=== PATIENT | female | born 1940 | race Caucasian/White ===

== ENCOUNTER 2016-08-18 13:53 | Inpatient (IN) | payer MEDICARE ==
[~2016-08-18] VITALS: Ht 154.9 cm; Wt 101.2 kg
[~2016-08-18 13:53] MED LIST: AMLO5TAB2 PO; CITA40TA5 PO; CLOB50FO8 TP; HYDR25TA6 PO; IBUP-1 PO; OMEP-110 PO; POTA10TA11 PO
[2016-08-18] MEDS ORDERED: SODIUM CHLORIDE 0.9% 1,000 ML IV ONE (14:05)
[2016-08-18] MEDS ORDERED: ONDANSETRON 2MG/ML, 2ML IVPush ONE (14:30)
[2016-08-18] MEDS ORDERED: SODIUM CHLORIDE FLUSH 10ML SYR IVF ONE (14:30)
[2016-08-18] MEDS ORDERED: HYDROmorphone 1 MG/ML, 1ML ONE (14:37)
[2016-08-18] MEDS ORDERED: ONDANSETRON 2MG/ML, 2ML ONE (14:37)
[2016-08-18] MEDS: HYDROmorphone 1 MG/ML, 1ML IVPush PRN ×2 (14:46→15:15)
[2016-08-18] MEDS ORDERED: ACETAMINOPHEN 325 MG TABLET PO ONE (15:00)
[2016-08-18] MEDS ORDERED: ACETAMINOPHEN 325 MG TABLET ONE (15:40)
[2016-08-18 15:44] LABS: ASPARTATE AMINO TRANSFERASE 15 U/L (15-37); BLOOD UREA NITROGEN 10 mg/dL (7-18)
[2016-08-18 15:50] LABS: IS PT STATUS REG ER OR PRE ER? YES
[2016-08-18 17:14] LABS: ICTOTEST POSITIVE
[2016-08-18] MEDS ORDERED: MORPHINE SULFATE 4 MG/ML, 1ML IVPush PRN (19:00)
[2016-08-18] MEDS ORDERED: ONDANSETRON 2MG/ML, 2ML IVP PRN (19:00)
[2016-08-18] MEDS ORDERED: POLYETHYLENE GLYCOL 17 GM PACKET PO PRN (19:00)
[2016-08-18] MEDS ORDERED: TEMAZEPAM 15 MG CAPSULE PO PRN (19:00)
[2016-08-18] MEDS ORDERED: BISACODYL 10 MG SUPP PR PRN (19:00)
[2016-08-18] MEDS ORDERED: HYDROcodone/APAP 5/325 TABLET PO PRN (19:00)
[2016-08-18] MEDS ORDERED: DOCUSATE 100 MG CAPSULE PO PRN (19:00)
[2016-08-18] MEDS ORDERED: POTASSIUM CHLORIDE 20 MEQ TAB.ER.PRT ONE (19:20)
[2016-08-18] MEDS: POTASSIUM CHLORIDE 20 MEQ TAB.ER.PRT PO SCH (19:25)
[2016-08-18 20:04] LABS: RAPID INFLUENZA A Negative (Negative); RAPID INFLUENZA B Negative (Negative)
[2016-08-18] MEDS: IBUPROFEN 200 MG TABLET PO SCH (21:00)
[2016-08-18 22:04] VITALS: BP 139/69
[2016-08-18] MEDS ORDERED: IBUPROFEN 600 MG TABLET ONE (22:35)
[2016-08-19] MEDS: ENOXAPARIN 40 MG/0.4 ML SQ SCH ×2 (00:15→18:37)
[2016-08-19] MEDS: SODIUM CHLORIDE 0.9% 1,000 ML IV SCH ×2 (00:15→10:08)
[2016-08-19] MEDS: GABAPENTIN 100 MG CAPSULE PO SCH ×4 (00:16→21:05)
[2016-08-19] MEDS ORDERED: LEVOFLOXACIN/PMX 750MG/150ML 150 ML IV SCH (00:30)
[2016-08-19 03:13] VITALS: BP 118/68
[2016-08-19 04:42] LABS: HEMOGLOBIN 12.9 g/dL (11.7-16.4)
[2016-08-19 04:55] LABS: BLOOD UREA NITROGEN 14 mg/dL (7-18)
[2016-08-19 07:40] VITALS: BP 103/63
[2016-08-19] MEDS: POTASSIUM CHLORIDE 20 MEQ TAB.ER.PRT PO SCH (08:33)
[2016-08-19] MEDS: CITALOPRAM 20 MG TABLET PO SCH (08:33)
[2016-08-19] MEDS: IBUPROFEN 200 MG TABLET PO SCH (08:33)
[2016-08-19] MEDS: AMLODIPINE 5 MG TABLET PO SCH (08:34)
[2016-08-19] MEDS ORDERED: HYDROCHLOROTHIAZIDE 25 MG TABLET PO SCH (09:00)
[2016-08-19] MEDS ORDERED: OMEPRAZOLE 20 MG CAPSULE.DR PO SCH (09:00)
[2016-08-19] MEDS ORDERED: NITROGLYCERIN 0.4 MG BOTTLE (25 TABS) SL ONE (12:00)
[2016-08-19 13:35] VITALS: BP 114/54
[2016-08-19] MEDS: ACETAMINOPHEN 325 MG TABLET PO PRN (16:20)
[2016-08-19 18:44] VITALS: BP 125/52
[2016-08-19] MEDS ORDERED: NITROGLYCERIN 0.4 MG BOTTLE (25 TABS) SL PRN (19:30)
[2016-08-19] MEDS ORDERED: MORPHINE SULFATE 4 MG/ML, 1ML IVPush ONE (19:40)
[2016-08-19 20:12] LABS: IS PT STATUS REG ER OR PRE ER? NO
[2016-08-19 20:34] VITALS: BP 114/68
[2016-08-20] MEDS ORDERED: OMNIPAQUE 350 MG/ML, 100ML BOTTLE ONE (00:20)
[2016-08-20 01:55] VITALS: BP 126/84
[2016-08-20] MEDS: ACETAMINOPHEN 325 MG TABLET PO PRN ×3 (02:01→20:42)
[2016-08-20 02:17] LABS: IS PT STATUS REG ER OR PRE ER? NO
[2016-08-20 05:11] LABS: ABG COLLECTION SITE LEFT RADIAL; COLLATERAL CIRCULATION TESTING NORMAL
[2016-08-20 05:24] LABS: BLOOD UREA NITROGEN 11 mg/dL (7-18)
[2016-08-20 05:31] LABS: HEMOGLOBIN 12.2 g/dL (11.7-16.4)
[2016-08-20 06:53] VITALS: BP 128/61
[2016-08-20] MEDS ORDERED: LEVOFLOXACIN/PMX 750MG/150ML 150 ML IV SCH (07:30)
[2016-08-20 07:58] LABS: IS PT STATUS REG ER OR PRE ER? NO
[2016-08-20] MEDS ORDERED: SODIUM CHLORIDE 0.9% 1,000 ML IV SCH (08:00)
[2016-08-20] MEDS: AMLODIPINE 5 MG TABLET PO SCH (08:24)
[2016-08-20] MEDS: GABAPENTIN 100 MG CAPSULE PO SCH ×3 (08:24→20:11)
[2016-08-20] MEDS: CITALOPRAM 20 MG TABLET PO SCH (08:24)
[2016-08-20] MEDS: CEFTRIAXONE PMX 2GM/50ML 50 ML IV SCH (08:51)
[2016-08-20] MEDS: DOXYCYCLINE 100 MG in DEXTROSE 5% 250 ML IV SCH ×2 (09:39→20:11)
[2016-08-20] MEDS: POTASSIUM ACID PHOSPHATE 500 MG TABLET.SOL PO SCH ×3 (09:45→20:11)
[2016-08-20 11:04] VITALS: BP 116/61
[2016-08-20 14:44] VITALS: BP 127/69
[2016-08-20 19:04] VITALS: BP 121/70
[2016-08-20] MEDS: ENOXAPARIN 40 MG/0.4 ML SQ SCH (20:11)
[2016-08-21 00:55] VITALS: BP 143/71
[2016-08-21] MEDS: ACETAMINOPHEN 325 MG TABLET PO PRN ×3 (02:37→20:09)
[2016-08-21] MEDS: POTASSIUM ACID PHOSPHATE 500 MG TABLET.SOL PO SCH ×4 (02:37→20:09)
[2016-08-21 05:51] LABS: HEMOGLOBIN 11.6 g/dL (11.7-16.4)
[2016-08-21 06:03] LABS: BLOOD UREA NITROGEN 8 mg/dL (7-18)
[2016-08-21 06:47] VITALS: BP 125/73
[2016-08-21] MEDS ORDERED: POTASSIUM CHLORIDE 20 MEQ TAB.ER.PRT PO ONE (08:30)
[2016-08-21] MEDS: GABAPENTIN 100 MG CAPSULE PO SCH ×3 (09:04→20:09)
[2016-08-21] MEDS: CEFTRIAXONE PMX 2GM/50ML 50 ML IV SCH (09:04)
[2016-08-21] MEDS: AMLODIPINE 5 MG TABLET PO SCH (09:04)
[2016-08-21] MEDS: CITALOPRAM 20 MG TABLET PO SCH (09:05)
[2016-08-21] MEDS: DOXYCYCLINE 100 MG in DEXTROSE 5% 250 ML IV SCH ×2 (10:27→20:09)
[2016-08-21] MEDS ORDERED: GADOBUTROL 10 MMOL/10 ML PFS ONE (11:18)
[2016-08-21 13:44] VITALS: BP 119/71
[2016-08-21 18:24] VITALS: BP 127/69
[2016-08-21] MEDS: ENOXAPARIN 40 MG/0.4 ML SQ SCH (20:09)
[2016-08-22] MEDS: POTASSIUM ACID PHOSPHATE 500 MG TABLET.SOL PO SCH ×4 (01:57→20:29)
[2016-08-22 02:03] VITALS: BP 146/76
[2016-08-22] MEDS: ACETAMINOPHEN 325 MG TABLET PO PRN ×2 (04:37→18:14)
[2016-08-22 08:01] VITALS: BP 111/65
[2016-08-22] MEDS: DOXYCYCLINE 100 MG in DEXTROSE 5% 250 ML IV SCH ×2 (08:44→20:29)
[2016-08-22] MEDS: GABAPENTIN 100 MG CAPSULE PO SCH ×3 (08:45→20:29)
[2016-08-22] MEDS: CITALOPRAM 20 MG TABLET PO SCH (08:45)
[2016-08-22] MEDS: AMLODIPINE 5 MG TABLET PO SCH (08:45)
[2016-08-22] MEDS: CEFTRIAXONE PMX 2GM/50ML 50 ML IV SCH (09:58)
[2016-08-22 13:05] VITALS: BP 120/75
[2016-08-22 19:07] VITALS: BP 127/71
[2016-08-22] MEDS: ENOXAPARIN 40 MG/0.4 ML SQ SCH (20:29)
[2016-08-23 02:05] VITALS: BP 157/74
[2016-08-23] MEDS: POTASSIUM ACID PHOSPHATE 500 MG TABLET.SOL PO SCH ×4 (03:03→21:06)
[2016-08-23 05:49] LABS: BLOOD UREA NITROGEN 8 mg/dL (7-18)
[2016-08-23 05:53] LABS: ASPARTATE AMINO TRANSFERASE 25 U/L (15-37)
[2016-08-23 06:57] VITALS: BP 139/73
[2016-08-23] MEDS ORDERED: POTASSIUM CHLORIDE 20 MEQ TAB.ER.PRT PO ONE (07:30)
[2016-08-23] MEDS ORDERED: MAGNESIUM SULFATE PMX 2GM/50ML 50 ML IV ONE (09:00)
[2016-08-23] MEDS: CEFTRIAXONE PMX 2GM/50ML 50 ML IV SCH (09:33)
[2016-08-23] MEDS: AMLODIPINE 5 MG TABLET PO SCH (09:37)
[2016-08-23] MEDS: GABAPENTIN 100 MG CAPSULE PO SCH ×3 (09:37→21:08)
[2016-08-23] MEDS: CITALOPRAM 20 MG TABLET PO SCH (09:38)
[2016-08-23] MEDS: DOXYCYCLINE 100 MG in DEXTROSE 5% 250 ML IV SCH ×2 (09:54→21:07)
[2016-08-23] MEDS: CIPROFLOXACIN 500 MG TABLET PO SCH ×2 (11:28→22:36)
[2016-08-23 13:31] VITALS: BP 125/68
[2016-08-23 19:08] VITALS: BP 131/63
[2016-08-23] MEDS: ENOXAPARIN 40 MG/0.4 ML SQ SCH (21:06)
[2016-08-23] MEDS: ACETAMINOPHEN 325 MG TABLET PO PRN (21:23)
[2016-08-24 00:50] VITALS: BP 144/72
[2016-08-24] MEDS: POTASSIUM ACID PHOSPHATE 500 MG TABLET.SOL PO SCH ×3 (03:04→15:01)
[2016-08-24 07:41] VITALS: BP 140/72
[2016-08-24] MEDS: GABAPENTIN 100 MG CAPSULE PO SCH (08:21)
[2016-08-24] MEDS: AMLODIPINE 5 MG TABLET PO SCH (08:21)
[2016-08-24] MEDS: CITALOPRAM 20 MG TABLET PO SCH (08:21)
[2016-08-24] MEDS: DOXYCYCLINE 100 MG in DEXTROSE 5% 250 ML IV SCH (08:21)
[2016-08-24 08:35] LABS: HEMOGLOBIN 11.9 g/dL (11.7-16.4)
[2016-08-24 08:46] LABS: BLOOD UREA NITROGEN 8 mg/dL (7-18)
[2016-08-24] MEDS ORDERED: POTA500T PO (09:08)
[2016-08-24] MEDS ORDERED: GABA100C8 PO (09:08)
[2016-08-24] MEDS ORDERED: CIPR500T87 PO (09:08)
[2016-08-24] MEDS ORDERED: MAGN400T26 PO (09:20)
[2016-08-24] MEDS: CIPROFLOXACIN 500 MG TABLET PO SCH (10:28)
[2016-08-24 13:11] VITALS: BP 142/68
== END 2016-08-24 16:24 | DRG 871 ==
LOC: ED 14:36 → SUATTDRO 18:27 → EDIP 18:37 → 4NOR 20:23 → 5SO 08-19 20:14 → 4WST 08-22 10:34
DX: A41.9 Sepsis, unspecified organism (principal); G93.41 Metabolic encephalopathy; J18.9 Pneumonia, unspecified organism; E87.1 Hypo-osmolality and hyponatremia; E44.0 Moderate protein-calorie malnutrition; Z68.41 Body mass index [BMI] 40.0-44.9, adult; R09.02 Hypoxemia; R31.0 Gross hematuria; E87.6 Hypokalemia; I10 Essential (primary) hypertension; Z66 Do not resuscitate; N20.0 Calculus of kidney; E86.0 Dehydration; K21.9 Gastro-esophageal reflux disease without esophagitis; R80.9 Proteinuria, unspecified; R21 Rash and other nonspecific skin eruption; E83.42 Hypomagnesemia; M48.10 Ankylosing hyperostosis [Forestier], site unspecified; Z96.641 Presence of right artificial hip joint; Z85.3 Personal history of malignant neoplasm of breast; Z88.0 Allergy status to penicillin; Z86.718 Personal history of other venous thrombosis and embolism; Z82.49 Family history of ischemic heart disease and other diseases of the circulatory system
CPT/HCPCS: 36415; 36600; 70450; 70553; 71010; 71275; 74176; 80048; 80053; 81001; 82140; 82550; 82803; 83605; 83735; 84100; 84145; 84439; 84443; 84484; 85025; 85379; 85610; 85730; 87040; 87086; 87205; 87400; 93005; 93306; 96361; 96374; 96375; A9585; J0696; J1170; J1650; J1956; J2405; J7060; Q9967; J3475; J7030

== ENCOUNTER → 2017-01-20 | Outpatient (CLI) | payer MEDICARE ==
[~2017-01-20] MED LIST changes: +CIPR500T87 PO; +GABA-826 PO; -IBUP-1 PO; +IBUP-11 PO; +MAGN400T26 PO; +POTA500T PO
== END | disposition home or self-care (01) ==
LOC: CFH 13:03
PROVIDERS: ATTEND Radiology Radiation Oncology
DX: Z12.31 Encounter for screening mammogram for malignant neoplasm of breast (principal); Z90.11 Acquired absence of right breast and nipple; Z85.3 Personal history of malignant neoplasm of breast; Z92.3 Personal history of irradiation
CPT/HCPCS: G0202

== ENCOUNTER → 2017-06-30 | Outpatient (CLI) | payer MEDICARE | END | disposition home or self-care (01) | LOC: ROC 12:48 | PROVIDERS: ATTEND Radiology Radiation Oncology | DX: Z08 Encounter for follow-up examination after completed treatment for malignant neoplasm (principal); C50.911 Malignant neoplasm of unspecified site of right female breast; G89.29 Other chronic pain; Z88.0 Allergy status to penicillin; Z98.890 Other specified postprocedural states | CPT/HCPCS: G0463 ==

== ENCOUNTER → 2018-05-01 | Outpatient (CLI) | payer MEDICARE ==
[~2018-05-01] MED LIST changes: +AMLO-150 PO; -AMLO5TAB2 PO
== END | disposition home or self-care (01) ==
LOC: CFH 12:49
PROVIDERS: ATTEND Radiology Radiation Oncology
DX: Z12.31 Encounter for screening mammogram for malignant neoplasm of breast (principal); Z85.3 Personal history of malignant neoplasm of breast
CPT/HCPCS: 77067

== ENCOUNTER 2018-09-08 09:12 | Outpatient (CLI) | payer MEDICARE | END 2018-09-08 23:59 | disposition home or self-care (01) | LOC: ROC 09:12 | PROVIDERS: ATTEND Radiology Radiation Oncology | DX: C50.911 Malignant neoplasm of unspecified site of right female breast (principal); Z88.0 Allergy status to penicillin | CPT/HCPCS: G0463 ==

== ENCOUNTER → 2019-05-08 | Outpatient (CLI) | payer MEDICARE | END | disposition home or self-care (01) | LOC: CFH 10:08 | PROVIDERS: ATTEND Radiology Radiation Oncology | DX: Z12.31 Encounter for screening mammogram for malignant neoplasm of breast (principal); Z85.3 Personal history of malignant neoplasm of breast | CPT/HCPCS: 77067 ==

== ENCOUNTER 2019-06-29 13:32 | Outpatient (CLI) | payer MEDICARE | END 2019-06-29 23:59 | disposition home or self-care (01) | LOC: CFH 13:32 | PROVIDERS: ATTEND Internal Medicine Cardiovascular Disease | DX: I08.3 Combined rheumatic disorders of mitral, aortic and tricuspid valves (principal); I10 Essential (primary) hypertension | CPT/HCPCS: 93306 ==

== ENCOUNTER → 2020-05-12 | Outpatient (CLI) | payer MEDICARE | END | disposition home or self-care (01) | LOC: CFH 10:27 | PROVIDERS: ATTEND Radiology Radiation Oncology | DX: Z12.31 Encounter for screening mammogram for malignant neoplasm of breast (principal) | CPT/HCPCS: 77067 ==

== ENCOUNTER → 2020-05-29 | Outpatient (CLI) | payer MEDICARE | END | disposition home or self-care (01) | LOC: CFH 13:25 | PROVIDERS: ATTEND Internal Medicine Cardiovascular Disease | DX: I08.8 Other rheumatic multiple valve diseases (principal) | CPT/HCPCS: 93306 ==